=== PATIENT | female | born 1950 | race Caucasian/White ===

== ENCOUNTER → 2017-07-24 | Outpatient (CLI) | payer BC ==
[~2017-07-24] MED LIST: CALC500C3 PO; INSDGIPEN SC; LAMO1TAB21 PO; LISI30TA3 PO; LYR25 PO; SIMV-151 PO
--- NOTE | 2017-07-24 12:50 | MAMMOGRAPHY REPORT ---
BILATERAL DIGITAL SCREENING MAMMOGRAM WITH CAD: 07/24/2017 CLINICAL HISTORY: Routine screening. Patient has no complaints. TECHNIQUE: Current study was also evaluated with a Computer Aided Detection (CAD) system. Bilateral CC and MLO views were obtained. COMPARISON: Comparison is made to exams dated: 07/22/2016 mammogram - [facility], 03/09/2009, and 12/29/2007. BREAST COMPOSITION: There are scattered areas of fibroglandular density in both breasts. FINDINGS: No suspicious masses, calcifications, or areas of architectural distortion are noted in ei ther breast. There has been no significant interval change compared to prior exams. Bilateral benign appearing calcifications are not significantly changed. IMPRESSION: ACR BI-RADS CATEGORY 2: BENIGN There is no mammographic evidence of malignancy. A 1 year screening mammogram is recommended. The pa tient will receive written notification of the results. Approximately 10% of breast cancers are not detected with mammography. A negative mammographic report should not delay biopsy if a clinically suggestive mass is present. Dia Cobian M.D. /:07/24/2017 08:24:14 Interface Analyst: Marisa Sadler, [facility] letter sent: Normal 1/2 BI-RADS Code: ACR BI-RADS Category 2: Benign
== END | disposition home or self-care (01) ==
LOC: C.MAMM 07:57
PROVIDERS: ATTEND Family Medicine
DX: Z12.31 Encounter for screening mammogram for malignant neoplasm of breast (principal)

== ENCOUNTER → 2018-03-01 | Outpatient (CLI) | payer OTHER ==
--- NOTE | 2018-02-26 11:10 | DIAGNOSTIC IMAGING REPORT ---
LEFT FOOT 3 VIEWS HISTORY: Follow-up left foot fracture. COMPARISON: None. FINDINGS: Increased bony bridging and sclerosis at the slightly distracted fracture at the base of the left fifth metatarsal. This is consistent with mild progressive healing. The fracture demonstrates up to 2 mm of distraction, unchanged. Near complete healing of the third and fourth metatarsal fractures. Tiny plantar heel spur. Soft tissues are within normal limits. No radiopaque foreign bodies. IMPRESSION: 1. Mild progressive healing within the fracture at the base of the left fifth metatarsal. 2. Near complete healing of the third and fourth metatarsal fractures. Electronically signed by: Issac Bryan M.D. 02/26/2018 11:08 AM Dictated Date/Time: 02/26/2018 11:05 AM
== END | disposition home or self-care (01) ==
LOC: C.RDSM 09:58
PROVIDERS: ATTEND Family Medicine
DX: T14.8XXA Other injury of unspecified body region, initial encounter (principal); X58.XXXA Exposure to other specified factors, initial encounter